=== PATIENT | male | born 1970 | race American Indian/Alaskan Native ===

== ENCOUNTER 2018-01-01 18:27 | Emergency (ER) | payer BC ==
[2018-01-01 18:54] VITALS: BP 132/91; PULSE 66; RESP 16; TEMP 96.8; O2SAT 98
[2018-01-01] MEDS ORDERED: PROPARACAINE/FLUORESCEIN SOD 100 DROP/5 ML BOTTLE OS STA (19:17)
--- NOTE | 2018-01-01 19:32 | ED PDOC ---
HPI: Eye Injury/Pain Time Seen by Provider: 01/01/18 19:07 Chief Complaint (Nursing): Eye Problem History Per: Patient History/Exam Limitations: no limitations Onset/Duration Of Symptoms: Mins Additional Complaint(s): Pt. was climbing into the shower and shower hook hit him in the eye and pulled upwards on his L eyelid, states he initially had blurry vision, now resolving. Past Medical History Reviewed: Historical Data, Nursing Documentation, Vital Signs Vital Signs: Last Vital Signs Temp 96.8 F L 01/01/18 18:52 Pulse 66 01/01/18 18:52 Resp 16 01/01/18 18:52 BP 132/91 H 01/01/18 18:52 Pulse Ox 98 01/01/18 18:52 - Medical History PMH: HTN - Family History Family History: States: Unknown Family Hx - Home Medications Home Medications: Ambulatory Orders Medication Instructions Recorded Polymyxin/Trimethoprim Sulfate 1 drop OU Q3 7 Days #1 bottle 01/01/18 [Polytrim Ophth Soln] - Allergies Allergies/Adverse Reactions: Allergies Allergy/AdvReac Type Severity Reaction Status Date / Time No Known Allergies Allergy Verified 01/01/18 18:52 Review of Systems ROS Statement: Except As Marked, All Systems Reviewed And Found Negative Eyes: Positive for: Pain Physical Exam - Reviewed Nursing Documentation Reviewed: Yes Vital Signs Reviewed: Yes - Physical Exam Appears: Positive for: Well Head Exam: Positive for: ATRAUMATIC, NORMAL INSPECTION, NORMOCEPHALIC Eye Exam: Positive for: EOMI, PERRL, Other (.5mm abrasion to medial canthus, .5mm abrasion to lateral canthus, subconjunctival hemorrhage, fluorscein testing shows no uptake) - ECG O2 Sat by Pulse Oximetry: 98 Medical Decision Making Medical Decision MakinPM Patient with abrasions to eye after accident involving shower hook -no significant damage seen on exam -currently no vision changes -will prescribe polytrim and refer to ophto tomorrow, patient understands importance of followup Disposition - Clinical Impression Clinical Impression: Eye injury - Patient ED Disposition Is Patient to be Admitted: No - Disposition Referrals: Ady Bui MD [Staff Provider] - Disposition: Routine/Home Disposition Time: 19:34 Condition: STABLE Prescriptions: Polymyxin/Trimethoprim Sulfate [Polytrim Ophth Soln] 1 drop OU Q3 7 Days #1 bottle Instructions: Eye Contusion (DC)
== END 2018-01-01 19:50 | disposition home or self-care (01) ==
LOC: H.ER 18:27
DX: S05.92XA Unspecified injury of left eye and orbit, initial encounter (principal); Y92.89 Other specified places as the place of occurrence of the external cause